=== PATIENT | male | born 1975 ===

== ENCOUNTER 2018-06-27 12:24 | Emergency (ER) | payer SELFPAY ==
[2018-06-27 12:30] VITALS: TEMP 98.8
[2018-06-27] MEDS ORDERED: Bacitracin 500 Units/gm Oint Foilpak UD TOP ONE (12:51)
[2018-06-27] MEDS ORDERED: Tdap Vaccine 0.5 ml Vial (10-64 yrs) IM ONE ×2 (12:51→12:57)
[2018-06-27] MEDS ORDERED: Lidocaine 1% Inj (20ml) INFIL ONE (12:51)
[2018-06-27] MEDS ORDERED: Lidocaine Hydrochloride 5 ML INJ ONE (12:57)
[2018-06-27] MEDS ORDERED: Bacitracin 500 Units/gm Oint Foilpak UD ONE (12:57)
--- NOTE | 2018-06-27 13:31 | C.PDOC ---
History Of Present Illness 42 y/o male comes in after sustaining a laceration to his left wrist earlier today. Patient states he was fixing something at home when a drill dropped on his left hand. Patient denies any other injuries and has no other medical complaints at this time. Time Seen by Provider: 06/27/18 12:47 Chief Complaint (Nursing): Abnormal Skin Integrity History Per: Patient History/Exam Limitations: no limitations Onset/Duration Of Symptoms: Hrs Current Symptoms Are (Timing): Still Present Past Medical History Reviewed: Historical Data, Nursing Documentation, Vital Signs Vital Signs: Last Vital Signs Temp 98.8 F 06/27/18 12:27 Pulse 75 06/27/18 12:27 Resp 17 06/27/18 12:27 BP 151/87 H 06/27/18 12:27 Pulse Ox 100 06/27/18 12:27 - Medical History PMH: No Chronic Diseases Family History: States: Unknown Family Hx - Social History Hx Alcohol Use: No Hx Substance Use: No - Immunization History Hx Tetanus Toxoid Vaccination: No Hx Influenza Vaccination: No Hx Pneumococcal Vaccination: No Review Of Systems Constitutional: Negative for: Fever, Chills Cardiovascular: Negative for: Chest Pain Respiratory: Negative for: Shortness of Breath Musculoskeletal: Positive for: Other (laceration to left wrist). Negative for: Arm Pain Skin: Negative for: Rash Neurological: Negative for: Weakness, Numbness Physical Exam - Physical Exam Appears: Non-toxic, No Acute Distress Skin: Warm, Dry Head: Atraumatic, Normacephalic Eye(s): bilateral: PERRL Oral Mucosa: Moist Neck: Supple Extremity: Normal ROM (Full ROM of all fingers), Capillary Refill (less than 2 seconds), Other (3cm laceration to medial left wrist; no tendon damage; has few parallel shallow laceration proximal to the 3cm laceration) Pulses: Left Radial: Normal Neurological/Psych: Oriented x3, Normal Speech, Normal Cognition, Normal Motor, Normal Sensation ED Course And Treatment O2 Sat by Pulse Oximetry: 100 (RA) Pulse Ox Interpretation: Normal Laceration - Laceration Repair wrist Wound Length (In cm): 3 Description Of Wound: Linear Wound Cleansed With: Betadine Anesthesia: Lidocaine 1% Wound Examination: Irrigated With Saline, No FB With Wound Exploration, No Tendon Injury With Wound Exploration Wound Closure: Suture (3-0 eithilon) Suture Technique And Material Used: Interrupted (#4 sutures) Wound Complexity: Simple Medical Decision Making Medical Decision Making: Plan: --Tetanus --Tylenol PO Disposition Counseled Patient/Family Regarding: Diagnosis, Need For Followup - Disposition Disposition: HOME/ ROUTINE Disposition Time: 13:32 Condition: GOOD Additional Instructions: Mantenga la herida limpia y seca. Cambie la venda a diario, lvela con agua y jabn y squela, luego aplique ungento antibitico. Los steri-strps se caern por yu cuenta. Retirada de la sutura en 10 bajwa. Regrese a la vic de emergencias para detectar cualquier signo de infeccin, alexis enrojecimiento, hinchazn. pus de la herida, fiebre u otras inquietudes. Tylenol or Motrin for pain if needed Keep wound clean and dry. Change bandage daily, wash wth soap and water and pat dry, then apply antibiotic ointment. The steri-strps will fall off on their own. Suture removal in 10 days. Return to ER for any signs of infections, such as redness, swelling. pus from wound, fever or other concerns. Instructions: Laceration Repair With Stitches (DC) Forms: Gen Discharge Inst Nigerien, [place] (Nigerien) Print Language: [place] - Clinical Impression Clinical Impression: Laceration of left wrist without complication - PA / WIRELESS CONSULTANT / Resident Statement MD/DO has reviewed & agrees with the documentation as recorded. - Scribe Statement The provider has reviewed the documentation as recorded by the Scribe Lottie oHuser All medical record entries made by the Scribe were at my direction and personally dictated by me. I have reviewed the chart and agree that the record accurately reflects my personal performance of the history, physical exam, medical decision making, and the department course for this patient. I have also personally directed, reviewed, and agree with the discharge instructions and disposition.
[2018-06-27 13:52] VITALS: BP 132/75; PULSE 63; RESP 20
[2018-06-30 10:59] VITALS: O2SAT 100
== END 2018-06-27 13:52 | disposition home or self-care (01) ==
LOC: C.ER 12:24
DX: S61.512A Laceration without foreign body of left wrist, initial encounter (principal); W22.8XXA Striking against or struck by other objects, initial encounter; Y92.009 Unspecified place in unspecified non-institutional (private) residence as the place of occurrence of the external cause